=== PATIENT | female | born 1985 | race Caucasian/White ===

== ENCOUNTER 2021-07-11 20:50 | Emergency (ER) | payer OTHER ==
[~2021-07-11] VITALS: Ht 154.9 cm; Wt 65.8 kg
== END 2021-07-12 00:10 | disposition home or self-care (01) ==
LOC: ER 20:50
DX: S93.491A Sprain of other ligament of right ankle, initial encounter (principal); X58.XXXA Exposure to other specified factors, initial encounter; Y92.018 Other place in single-family (private) house as the place of occurrence of the external cause